=== PATIENT | female | born 1965 | race Caucasian/White ===

== ENCOUNTER 2020-11-21 14:51 | Emergency (ER) | payer MEDICAID ==
[~2020-11-21] VITALS: Ht 154.9 cm; Wt 86.0 kg
[2020-11-21 15:00] VITALS: BP 146/92
[2020-11-21] MEDS ORDERED: KETOROLAC 30MG/ML VIAL IM ONE (15:45)
[2020-11-21] MEDS ORDERED: ACETAMINOPHEN 325MG TABLET PO ONE (16:00)
== END 2020-11-21 17:40 | disposition home or self-care (01) ==
LOC: ER 14:51
DX: M79.673 Pain in unspecified foot (principal); M72.2 Plantar fascial fibromatosis; G89.29 Other chronic pain; G43.909 Migraine, unspecified, not intractable, without status migrainosus
CPT/HCPCS: 99282